=== PATIENT | female | born 1940 | race Caucasian/White ===

== ENCOUNTER 2017-02-03 05:56 | Day surgery (SDC) | payer OTHER, MEDICARE ==
[2017-01-05 10:00] VITALS: BMI 27.0
--- NOTE | 2017-01-05 10:41 | PAT Medication Instructions ---
Service Date Jan 05, 2017. Current Home Medication List Aspirin (Aspirin 81), 1 TAB PO QAM Atenolol (Atenolol), 50 MG PO QAM Cholecalciferol (Vitamin D), 1,000 INTER.UNIT PO QPM Diclofenac Sodium (Topical) (Voltaren 1% Top Gel), TOP QAM PRN for Pain Lactobacillus (Acidophilus), 1 TAB PO QAM Meloxicam (Mobic), 7.5 MG PO UD PRN for Pain Sodium Chloride Oph (Yvon 128 Oph), 1 DROP OPB BID Medication Instructions For Your Scheduled Surgery - Check with surgeon for instructions: Meloxicam (Mobic), 7.5 MG PO UD PRN for Pain Aspirin (Aspirin 81), 1 TAB PO QAM - Hold the following medications 24 hours prior to surgery: Diclofenac Sodium (Topical) (Voltaren 1% Top Gel), TOP QAM PRN for Pain - Hold the following medications the morning of surgery: Cholecalciferol (Vitamin D), 1,000 INTER.UNIT PO QPM Lactobacillus (Acidophilus), 1 TAB PO QAM - Take the following medications the morning of surgery with a sip of water: Sodium Chloride Oph (Yvon 128 Oph), 1 DROP OPB BID Atenolol (Atenolol), 50 MG PO QAM - Take the following medications as scheduled the night before surgery: Sodium Chloride Oph (Yvon 128 Oph), 1 DROP OPB BID If you have any questions please call us at [phone] or [phone] or [phone]
[2017-01-05 11:16] LABS: URINE APPEARANCE CLEAR (CLEAR); URINE BILIRUBIN NEG (NEG); URINE COLOR YELLOW; URINE NITRITE NEG (NEG); URINE PH 7.5 (4.5-7.5); URINE SPECIFIC GRAVITY 1.013 (1.000-1.030); UROBILINOGEN NEG (NEG)
[2017-01-05 11:17] LABS: MANUAL MICROSCOPIC REQUIRED? NO; REVIEW REQ? NO
[2017-01-05 11:26] LABS: PARTIAL THROMBOPLASTIN RATIO 1.1; PROTHROMBIN TIME (PATIENT) 10.6 SECONDS (9.0-12.0)
--- NOTE | 2017-01-05 11:38 | DIAGNOSTIC IMAGING REPORT ---
CHEST PREADMISSION(PA/LAT) CLINICAL HISTORY: Preoperative evaluation. COMPARISON STUDY: Chest radiograph April 15, 2015. FINDINGS: Numerous pulmonary nodules are unchanged and reflect calcified granulomas. No pneumothorax or pleural effusion is present. Borderline cardiomegaly is unchanged. Pulmonary vascularity is normal. The appearance the chest is unchanged. IMPRESSION: No acute cardiopulmonary findings. Electronically signed by: Maikel Goodman M.D. 01/05/2017 11:36 AM Dictated Date/Time: 01/05/2017 11:35 AM
[2017-01-05 11:56] LABS: BASO % 0.5 %; BASO ABS # 0.03 K/uL (0-0.2); COMPLETE YES; EOS % 2.1 %; HEMATOCRIT 44.7 % (37-47); IG% 0.2 %; LYMPH % 33.8 %; LYMPH ABS # 2.08 K/uL (1.2-3.4); MEAN CORPUSCULAR HEMOGLOBIN 33.8 pg (25-34); MEAN CORPUSCULAR HGB CONC 33.8 g/dl (32-36); MONO % 7.8 %; NEUT % 55.6 %; PLATELET COUNT 257 K/uL (130-400); RED BLOOD COUNT 4.47 M/uL (4.2-5.4); WHITE BLOOD COUNT 6.16 K/uL (4.8-10.8)
[2017-01-05 12:30] LABS: BUN/CREATININE RATIO 14.5 (10-20); CREATININE 0.96 mg/dl (0.60-1.20); POTASSIUM 4.4 mmol/L (3.5-5.1)
[~2017-02-03] VITALS: Ht 152.4 cm; Wt 62.7 kg
--- NOTE | 2017-02-03 01:36 | HISTORY & PHYSICAL EXAMINATION ---
DATE OF ADMISSION: 02/03/2017 SUBJECTIVE CHIEF COMPLAINT: Right foot pain. 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 She had a similar problem on the left foot which she had a fusion performed by Dr. Guevara in [place] approximately 12-13 years ago. More recently with this right foot, she had approximately 3+ years of pain and has had limited range of motion. She has been treated conservatively; however, she has failed all conservative management. She is now being set up for a hemiarthroplasty of the first MTP joint. PAST MEDICAL HISTORY: Hypertension, history of spine problems, acid reflux, history of breast cancer. SOCIAL HISTORY: The patient denies tobacco use. She has approximately 1 alcoholic drink per week. PAST SURGICAL HISTORY: Appendectomy, tonsillectomy, tubal ligation, mastectomy, left first MTP fusion, breast reconstruction and laminectomy. ALLERGIES: CODEINE CAUSES AN UPSET STOMACH. CURRENT MEDICATIONS: Atenolol, aspirin, acidophilus, and vitamin D. FAMILY HISTORY: Noncontributory. OBJECTIVE PHYSICAL EXAMINATION: GENERAL: The patient is alert and oriented x3. She is in no acute distress. She is a well-dressed, well-nourished 76-year-old female. Her affect is appropriate. CARDIOVASCULAR: Heart has a regular rhythm and rate without murmurs. LUNGS: Clear to auscultation bilateral. Dorsalis pedis, posterior tib pulse +2/4. Cap refill is less than 2 seconds. LYMPHATIC: No evidence of any swollen lymph nodes. MUSCULOSKELETAL: The patient has an antalgic gait favoring the right lower extremity. Upon inspection of the lower extremity, she has swelling of the first MTP joint. There appears to be bony exostosis dorsally. With palpation, she has tenderness of the 1st MTP joint. She has pain and crepitation elicited with passive range of motion of the right foot 1st MTP joint. She also has limited range of motion both with flexion and extension. SKIN: There are no scars, rashes or ulcers noted. NEUROLOGIC: Sensation is normal intact distally. X-RAY EXAMINATION: Multiple views of the right foot demonstrate severe osteoarthritic changes of the first MTP joint with subchondral sclerosis and spurring. ASSESSMENT AND DIAGNOSES: Right first metatarsophalangeal osteoarthritis. PLAN: Above assessment was discussed with the patient. At this time it was recommended the patient undergo a right first MTP Arthrosurface hemiarthroplasty. All potential risks, benefits, complications, alternatives and rehab have been discussed with the patient and at this time she wishes to proceed with the surgery as indicated. She will be scheduled for the surgery on 02/03/2017.
[~2017-02-03 05:56] MED LIST: ASPI-435 PO; CHOL100010 PO; DICL1GEL12 TOP; LACTTAB7 PO; MELO7.5T5 PO; SODI5OIN4 OPB; TNR50 PO
[2017-02-03] MEDS ORDERED: LACTATED RINGER'S 1000ML 1,000 ML IV SCH (06:00)
[2017-02-03] MEDS ORDERED: DEXAMETHASONE SOD INJ 4 MG/ML VIAL ONE ×2 (06:21→07:02)
[2017-02-03] MEDS ORDERED: BUPIVACAINE 0.25% 30 ML VIAL ONE (06:21)
[2017-02-03] MEDS ORDERED: EpINEphrine INJ 1MG/ML AMP 1 MG/ML AMP ONE (06:21)
[2017-02-03 06:29] VITALS: BP 145/86; PULSE 45; TEMP 36.4; O2SAT 98; Ht 152.4 cm; Wt 62.7 kg
[2017-02-03] MEDS ORDERED: BACITRACIN 50000 UNIT VIAL ONE (06:54)
[2017-02-03] MEDS ORDERED: ONDANSETRON INJ 2 MG/ML 2 ML VIAL ONE (07:02)
[2017-02-03] MEDS ORDERED: MIDAZOLAM HCL 1 MG/ML 2ML VIAL ONE (07:02)
[2017-02-03] MEDS ORDERED: LIDOCAINE HCL 2% 2 ML VIAL (20MG/ML) ONE (07:02)
[2017-02-03] MEDS ORDERED: FENTANYL CITRATE INJ 50 MCG/1 ML 2 ML VIAL ONE (07:02)
[2017-02-03] MEDS ORDERED: PROPOFOL IV EMULSION 10 MG/ML 20 ML VIAL IV ONE (07:02)
--- NOTE | 2017-02-03 07:47 | History & Physical Bridge Note ---
H&P Re-Evaluation Bridge Note: I have examined the patient, reviewed the History & Physical and in the interval since the performance of the History & Physical I have noted the following changes of clinical significance: No changes noted
[2017-02-03] MEDS ORDERED: EpHEDrine SULFATE INJ 50 MG/ML AMP IV PRN (08:15)
[2017-02-03] MEDS ORDERED: ATROPINE SULFATE 0.1 MG/ML 5ML SYR IV PRN (08:15)
[2017-02-03] MEDS ORDERED: FENTANYL CITRATE INJ 50 MCG/1 ML 2 ML VIAL IV PRN (08:15)
[2017-02-03] MEDS ORDERED: ONDANSETRON INJ 2 MG/ML 2 ML VIAL IV PRN (08:15)
[2017-02-03] MEDS ORDERED: CEFAZOLIN SOD 1 GM VIAL ONE (08:18)
--- NOTE | 2017-02-03 08:50 | [facility] Post Operative Brief Note ---
Immediate Operative Summary Operative Date Feb 03, 2017. Pre-Operative Diagnosis Right first metatarsophalangeal osteoarthritis, Hallux Rigidus Post-Operative Diagnosis Right first metatarsophalangeal osteoarthritis, Hallux Rigidus Procedure(s) Performed Right Great Toe Arthrosurface Hemiarthroplasty Surgeon Dr. Prieto Orthopedic Tech Surgeon(s) Yobani Buckley Pa-C Estimated Blood Loss 1 ML Findings See dict Specimens none per surgeon Drains None Anesthesia GLMA w/ popliteal block Complication(s) None Disposition Recovery Room / PACU
[2017-02-03] MEDS ORDERED: PROM25TA9 PO (08:56)
[2017-02-03] MEDS ORDERED: OXYC-57 PO (08:56)
--- NOTE | 2017-02-03 08:59 | Discharge Instructions ---
Discharge Instructions Date of Service Feb 03, 2017. Admission Reason for Admission: Right Great Toe Osteoarthritis Discharge Discharge Diagnosis / Problem: Right 1st MTP osteoarthritis Discharge Goals Goal(s): Decrease discomfort, Improve function Activity Recommendations Activity Limitations: per Instructions/Follow-up section Weightbearing Status: Right partial (Heel weightbearing only. If not tolerated , nonweightbearing) . Instructions / Follow-Up Instructions / Follow-Up ACTIVITY RECOMMENDATIONS: Limitations: Heel weight bearing only if able to tolerate. SPECIAL CARE INSTRUCTIONS: * If tolerated, you may do gentle passive motion with the great toe while keeping the dressing in place. * Some drainage onto the dressing is normal and is no cause for alarm. * Some swelling is natural especially after walking. * When resting, keep your foot elevated above the level of your heart. * Call [facility] if you notice: -Increased drainage -Fever over 101 degrees F -Severe constant pain BANDAGE: * Leave bandage/cast in place unless otherwise directed. * Keep bandage/cast dry at all times. PIN CARE: * Leave pins alone. * If pins come loose or fall out, notify physician. FOLLOW UP VISIT WITH DR. SANCHEZ If appointment is not already scheduled: Please call [facility] after you get home today to schedule a follow-up appointment for [address] Sanchez at . Current Hospital Diet Patient's current hospital diet: Discharge Diet Recommended Diet: Regular Diet Procedures Procedures Performed: Right Great Toe Arthrosurface Hemiarthroplasty Pending Studies Studies pending at discharge: no Medical Emergencies . Who to Call and When: Medical Emergencies: If at any time you feel your situation is an emergency, please call [phone] immediately. . Non-Emergent Contact Non-Emergency issues call your: Surgeon Call Non-Emergent contact if: temperature is above 101, your pain is not controlled, your pain is worsening . "Provider Documentation" section prepared by Yobani Buckley. . VTE Core Measure Inpt VTE Proph given/why not?: SCD's
[2017-02-03] MEDS ORDERED: OXYCODONE/ACETAMINOPHEN 5-325 TAB PO PRN (09:00)
--- NOTE | 2017-02-03 09:05 | DIAGNOSTIC IMAGING REPORT ---
R TOE(S) MIN 2 VIEWS CLINICAL HISTORY: RT GREAT TOE ARTHROPLASTY COMPARISON STUDY: None. FINDINGS: Total fluoroscopy time was 4 seconds. 2 fluoroscopic spot images of the forefoot. There is a first MTP joint arthroplasty. The hardware appears intact. No fracture or dislocation. IMPRESSION: Fluoroscopy provided for a first MTP joint arthroplasty Electronically signed by: Duy Ochoa M.D. 02/03/2017 9:04 AM Dictated Date/Time: 02/03/2017 9:03 AM
--- NOTE | 2017-02-03 09:22 | Anesthesiology Progress Note ---
Anesthesia Post Op Note Date & Time Feb 03, 2017 at 09:22 Vital Signs Pain Intensity: 0 Vital Signs Past 12 Hours Date Time Temp Pulse Resp B/P (MAP) Pulse Ox O2 Delivery O2 Flow Rate FiO2 02/03/17 09:15 55 16 105/73 99 Room Air 02/03/17 09:05 57 16 123/61 100 Oxymask 5 02/03/17 08:57 36.1 58 14 115/71 100 Oxymask 10 02/03/17 06:29 36.4 45 16 145/86 (105) 98 Room Air Notes Mental Status: alert / awake / arousable, participated in evaluation Pt Amnestic to Procedure: Yes Nausea / Vomiting: adequately controlled Pain: adequately controlled Airway Patency, RR, SpO2: stable & adequate BP & HR: stable & adequate Hydration State: stable & adequate Anesthetic Complications: no major complications apparent Block working well in pacu
--- NOTE | 2017-02-03 09:31 | DIAGNOSTIC IMAGING REPORT ---
RIGHT FOOT 3 VIEWS HISTORY: post op COMPARISON: None. FINDINGS: Right first MTP joint arthroplasty. The hardware appears intact. Overlying bandage obscures fine bony detail. No fracture or dislocation. Soft tissue gas at the first MTP joint is consistent with postoperative change. IMPRESSION: Status post right first MTP joint arthroplasty. Electronically signed by: uDy Ochoa M.D. 02/03/2017 9:30 AM Dictated Date/Time: 02/03/2017 9:29 AM
--- NOTE | 2017-02-03 09:31 | OPERATIVE REPORT ---
DATE OF OPERATION: 02/03/2017 PREOPERATIVE DIAGNOSES: 1. Right foot first metatarsophalangeal joint degenerative joint disease. 2. Hallux rigidus. POSTOPERATIVE DIAGNOSES: Same. PROCEDURE: Right first metatarsophalangeal joint arthroscopic hemiarthroplasty. SURGEON: Dr. Jewel Prieto. PLASTICS SCIENTIST: Yobani Buckley PA-C who was present for patient positioning, sterile prep and drape, management of retractors and instruments. He was present through the critical portions of the case including wound closure, application of sterile dressing and transport of the patient to recovery. ANESTHESIA: General LMA with popliteal block. SPECIMENS: None. DRAINS: None. COMPLICATIONS: None. BLOOD LOSS: 1 mL. PERTINENT HISTORY: This is a 76-year-old female with chronic progressive and ongoing right foot pain, deformity and loss of function and motion. She attempted and failed conservative management including shoewear modification, activity modification, physician directed home exercises, shoe inserts, ice, anti-inflammatories and injections. She had radiographs, which demonstrated right foot first metatarsophalangeal joint degenerative changes including sclerosis, marginal osteophytes, subchondral cysts and loss of the joint space. She was scheduled for surgery as indicated. All potential risks, benefits, complications, alternatives, rehab, potential for incomplete relief of symptoms, need for further surgery, DVT, PE, , persistent pain, swelling, scarring, weakness, neurovascular injury, wound complications, hardware failure, nonunion, and malunion were discussed with the patient. The patient decided to proceed with the procedure as indicated. DESCRIPTION OF PROCEDURE: After popliteal block was administered, the patient was taken to the operative suite, placed supine on the operating room table. After reviewing consent and identification of proper operative site, the patient was anesthetized, LMA was placed. Tourniquet was placed high on the right thigh over cast padding. Right lower extremity was then sterilely prepped and draped in the usual fashion, elevated and exsanguinated with an Esmarch bandage. Esmarch tourniquet was applied over sterile surgical towel at the level of the ankle. The pneumatic tourniquet was not used during the case. Next, a 15 blade scalpel was used to make an incision over the dorsal aspect of the first metatarsophalangeal joint. The incision was then deepened through the subcutaneous tissue. Meticulous hemostasis was achieved with electrocautery. Full thickness skin flaps were developed. The extensor hallucis longus was identified, freed, retracted, and protected laterally. Next, a Weitlaner retractor was placed in the incision and then the dorsal capsule and extensor brevis was then incised in line with skin incision, elevated both medially and laterally. Next, a hypertrophic synovium was encountered and this was resected with a rongeur. Next, the capsule was then retracted with a rongeur and a 15 blade scalpel was used to release the capsular attachments of the first metatarsophalangeal joint dorsally, medially and laterally. Next, a McGlamry elevator was placed into the joint between the first metatarsal and the sesamoids. This was then hyperplantarflexed to release soft tissue contracture. Next, the rongeur was used to resect marginal osteophytes at the proximal phalanx of the great toe. Next, the wound was copiously irrigated with sterile normal saline. This was then followed by use of a guide pin and under fluoroscopic assistance was placed essentially into the center-center position of the first metatarsal. Next, the initial reamer was passed over the guidepin and used to ream for the post. Next, the bone tap was then used to tap the first metatarsal followed by irrigation with copious amounts of sterile normal saline with bacitracin and then implantation of the threaded post. This was countersunk approximately 1 mm. Next, the Hunt taper alignment edgar was then placed into the threaded post followed by measurement of the first metatarsal head. Next, appropriate dorsal phalange reamer was then placed into the threaded posts and then used to ream the dorsal phalange of the first metatarsal. Next, this was irrigated with sterile normal saline. A trial was then placed gently into the Sylvester taper of the threaded post and then a sagittal saw was used to resect osteophytes circumferentially from around the trial within the first metatarsal head. Next, after excess bone was then excised wound was irrigated once again with sterile normal saline. This was then followed by impaction of the final implant into the threaded post and radiographs were obtained confirming position and alignment. Next, the wound was once again irrigated with sterile normal saline. The dorsal capsule was closed using 3-0 Vicryl suture then followed by closure of the dermis with buried interrupted 3-0 Vicryl x2 sutures and the skin was then closed using 4-0 nylon. Next, sterile compressive forefoot dressing was applied overwrapped with Coban. The tourniquet was released. The patient was awakened and taken to recovery in stable condition. I attest to the content of the Intraoperative Record and any orders documented therein. Any exceptions are noted below. JOSE ALBERTOD
[2017-02-03 09:40] VITALS: BP 134/77; PULSE 59; TEMP 36.4; O2SAT 100
[2017-02-03 10:10] VITALS: BP 140/71; PULSE 55; O2SAT 97
[2017-02-03 10:40] VITALS: BP 138/75; PULSE 58; TEMP 36.4; O2SAT 98
== END 2017-02-03 10:55 | disposition home or self-care (01) ==
LOC: C.ACU 05:56
PROVIDERS: ATTEND Orthopaedic Surgery Sports Medicine
DX: M19.071 Primary osteoarthritis, right ankle and foot (principal); M20.21 Hallux rigidus, right foot; I10 Essential (primary) hypertension; K21.9 Gastro-esophageal reflux disease without esophagitis; Z85.3 Personal history of malignant neoplasm of breast; Z90.89 Acquired absence of other organs; Z98.51 Tubal ligation status; Z90.10 Acquired absence of unspecified breast and nipple; Z79.82 Long term (current) use of aspirin; M19.90 Unspecified osteoarthritis, unspecified site

== ENCOUNTER → 2017-11-02 | Outpatient (CLI) | payer OTHER, MEDICARE ==
[~2017-11-02] MED LIST changes: -MELO7.5T5 PO
[2017-11-02 09:35] LABS: BASO % 0.4 %; BASO ABS # 0.02 K/uL (0-0.2); EOS % 3.1 %; EOS ABS # 0.17 K/uL (0-0.5); HEMATOCRIT 42.9 % (37-47); HEMOGLOBIN 14.5 g/dL (12.0-16.0); IG# 0.01 K/uL (0.00-0.02); LYMPH % 27.7 %; LYMPH ABS # 1.53 K/uL (1.2-3.4); MEAN CELL VOLUME 99.8 fL (80-100); MEAN CORPUSCULAR HEMOGLOBIN 33.7 pg (25-34); MEAN CORPUSCULAR HGB CONC 33.8 g/dl (32-36); MEAN PLATELET VOLUME 10.2 fL (7.4-10.4); MONO ABS # 0.44 K/uL (0.11-0.59); NEUT % 60.6 %; NEUT ABS # 3.36 K/uL (1.4-6.5); PLATELET COUNT 255 K/uL (130-400); RED CELL DISTRIBUTION WIDTH CV 13.6 % (11.5-14.5); RED CELL DISTRIBUTION WIDTH SD 49.6 fL (36.4-46.3); WHITE BLOOD COUNT 5.53 K/uL (4.8-10.8)
[2017-11-02 09:58] LABS: ALBUMIN 3.6 gm/dl (3.4-5.0); ALKALINE PHOSPHATASE 81 U/L (45-117); ALT/SGPT 24 U/L (12-78); AST/SGOT 20 U/L (15-37); BLOOD UREA NITROGEN 13 mg/dl (7-18); CALCIUM 9.1 mg/dl (8.5-10.1); CARBON DIOXIDE 29 mmol/L (21-32); CHOLESTEROL 187 mg/dl (0-200); GLUCOSE 91 mg/dl (70-99); LDL CHOLESTEROL CALCULATED 86 mg/dl; POTASSIUM 4.2 mmol/L (3.5-5.1); SODIUM 141 mmol/L (136-145); TOTAL PROTEIN 7.2 gm/dl (6.4-8.2)
== END | disposition home or self-care (01) ==
LOC: C.LAB 07:20
PROVIDERS: ATTEND Internal Medicine
DX: Z00.00 Encounter for general adult medical examination without abnormal findings (principal); I10 Essential (primary) hypertension; M85.80 Other specified disorders of bone density and structure, unspecified site; C50.919 Malignant neoplasm of unspecified site of unspecified female breast; K21.9 Gastro-esophageal reflux disease without esophagitis; E55.9 Vitamin D deficiency, unspecified

== ENCOUNTER 2019-10-28 06:26 | Inpatient (IN) ==
--- NOTE | 2019-10-23 10:11 | Anesthesiology Consultation ---
Date of Service October 23, 2019 Assessment & Plan (1) Encounter for pre-operative examination: Per nursing phone assessment on 10/20: Travel screen- Lives in [facility]. Picnic with in [facility] (uses PPE). No known COVID-19 positive contacts. No current COVID-19 related symptoms. Patient had preop protocol COVID-19 testing on 10/22 ([place]). Awaiting results. Chart Review Chart Review: Acceptable Risk for Surgery and Patient NOT seen in Pre Admission Testing History Surgery Operation Date: 10/28/19 08:30 Proposed Procedures p Laparoscopic-Assisted Colon Resection - Sushant Yun MD, FACS Height/Weight Height: 5 ft Weight: 60.328 kg Allergies Allergy/AdvReac Type Severity Reaction Status Date / Time ragweed pollen Allergy Unknown RUNNY Verified 10/21/19 07:38 NOSE, ITCHY EYES, SCRATCHY THROAT, RASH ON ARMS codeine AdvReac Mild NAUSEA Verified 10/21/19 07:38 Medications Home Medications Medication Instructions Recorded Confirmed Last Taken cholecalciferol (vitamin D3) 50 2,000 units PO HS tab 11/01/18 10/21/19 03/25/19 mcg (2,000 unit) tablet aspirin 81 mg PO QAM 03/26/19 10/21/19 03/25/19 atenolol 50 mg PO QAM 10/21/19 10/21/19 Unknown lactobacillus combination no.4 3,000 mmu cells PO QPM 10/21/19 10/21/19 Unknown [Probiotic] metronidazole [Flagyl] 500 mg PO UD 10/21/19 10/21/19 Unknown neomycin 500 mg PO UD 10/21/19 10/21/19 Unknown Past Medical History Medical History (Updated 10/23/19 @ 10:24 by Lilly Belle) Anxiety Arthritis Breast cancer 2014 - left mastectomy no chemo/radiation Central retinal vein occlusion 2012/no current issues Diverticulitis Gastroesophageal reflux disease Hypertension Insomnia Irritable bowel syndrome Migraine headache occasional Osteopenia Past Surgical History Surgical History (Updated 10/23/19 @ 10:07 by Lilly Belle) H/O colonoscopy (08/24/18) Dr. Cheung [facility] History of anesthesia reaction Nausea, urinary retention History of appendectomy (~1956) History of back surgery (~2017) lumbar laminectomy History of cataract surgery left and right History of dilatation and curettage History of foot surgery (~2017) right and left big toe joint History of oral surgery wisdom teeth History of tonsillectomy (~1972) History of total abdominal hysterectomy and bilateral salpingo-oophorectomy (~1993) Hx of breast surgery (~2013) left mastectomy PONV (postoperative nausea and vomiting) Social History Smoking Status: Never smoker Do You Dip or Chew Tobacco: No Hx Alcohol Use: Yes Alcohol type: wine alcohol intake frequency: holidays/special occasions only Hx Substance Use: No substance use type: does not use Testing Laboratory Results 10/23/19 SODIUM 137 POTASSIUM 4.2 CHLORIDE 105 CO2 27 BUN 16 CREATININE 1.08 GLUCOSE 96 WBC 8.34 H/H 14.6/43.6 PLT 305 Electrocardiogram Date: 10/23/19 SB at 57bpm. unconfirmed report* Chest X-Ray Date: 10/23/19 FINDINGS: Chronic granulomatous change considered unchanged. Diaphragms are smooth. Lungs are clear. Mild degenerative change thoracic spine. IMPRESSION: No acute process.
[~2019-10-28 06:26] MED LIST changes: -ASPI-435 PO; -CHOL100010 PO; -DICL1GEL12 TOP; -LACTTAB7 PO; +LR 15ML/HR IV SCH; -SODI5OIN4 OPB; -TNR50 PO; +cefOXitin 2,000 MG in DEXTROSE 5% 50 ML IV SCH
[2019-10-28] MEDS ORDERED: fentaNYL citrate 100 MCG/2 ML VIAL ONE ×2 (07:17→09:20)
[2019-10-28] MEDS ORDERED: GLYCOPYRROLATE 0.2 MG/ML VIAL ONE (07:17)
[2019-10-28] MEDS ORDERED: PROPOFOL IV EMULSION 10 MG/ML 20 ML VIAL IV ONE (07:17)
[2019-10-28] MEDS ORDERED: ONDANSETRON INJ 2 MG/ML 2 ML VIAL ONE (07:17)
[2019-10-28] MEDS ORDERED: LIDOCAINE HCL 2% 2 ML VIAL/AMP(20MG/ML) INFIL ONE (07:17)
[2019-10-28] MEDS ORDERED: DEXAMETHASONE SOD INJ 4 MG/ML VIAL ONE (07:17)
[2019-10-28] MEDS ORDERED: NEOSTIGMINE METHYLSULFATE 5 MG/5 ML SYR ONE (07:17)
[2019-10-28] MEDS ORDERED: MIDAZOLAM HCL 1 MG/ML 2ML VIAL ONE (07:17)
[2019-10-28] MEDS ORDERED: ROCURONIUM BROMIDE 10 MG/ML 5 ML VIAL IV ONE (07:17)
--- NOTE | 2019-10-28 07:34 | History & Physical Bridge Note ---
Date of Service October 28, 2019 History & Physical Bridge Note I have examined the patient, reviewed the History & Physical and in the interval since the performance of the History & Physical I have noted the following changes of clinical significance: no changes noted
[2019-10-28] MEDS ORDERED: BUPIVACAINE 0.5 % 5 MG/1 ML MPF 30ML VIAL ONE (07:54)
[2019-10-28] MEDS ORDERED: ePHEDrine sulfate 50 MG/ML AMP IV PRN (08:08)
[2019-10-28] MEDS ORDERED: ONDANSETRON INJ 2 MG/ML 2 ML VIAL IV PRN (08:08)
[2019-10-28] MEDS ORDERED: ATROPINE SULFATE 0.1 MG/ML 10ML SYR IV PRN (08:08)
[2019-10-28] MEDS ORDERED: fentaNYL citrate 100 MCG/2 ML VIAL IV PRN (08:08)
[2019-10-28] MEDS ORDERED: ACETAMINOPHEN 1000 MG/100 ML IV IV ONE (08:12)
[2019-10-28] MEDS ORDERED: ePHEDrine sulfate 50 MG/ML SYR ONE (08:48)
[2019-10-28] MEDS ORDERED: PHENYLEPHRINE 100MCG/ML 5ML SYR ONE (08:48)
[2019-10-28] MEDS ORDERED: HYDROmorphone INJ 2 MG/ML SYR/VIAL ONE (09:37)
[2019-10-28] MEDS ORDERED: CEFAZOLIN 250 MG/ML 1 GM VIAL ONE (10:24)
[2019-10-28] MEDS ORDERED: CEFAZOLIN 1000MG 1,000 MG/7.5 ML SYR IV STA (10:25)
[2019-10-28] MEDS ORDERED: ACETAMINOPHEN 1,000 MG/100 ML VIAL IV ONE (10:44)
--- NOTE | 2019-10-28 10:44 | Post Operative Brief Note ---
PG Immediate Post Op with CF Date of Surgery October 28, 2019 Pre & Post Diagnosis Operation Date: 10/28/19 08:30 Pre-Op Diagnosis: Diverticulitis Post-Op Diagnosis: Diverticulitis- acute/ chronic I identified the patient and participated in the time-out.: Yes Procedure Operation Date: 10/28/19 08:30 Actual Procedures p Laparoscopic-Assisted Sigmoid Colon Resection(Not Applicable) - Sushant Yun MD, FACS Surgeon Sushant Yun MD, FACS Lan Specialist Emmanuel Clayton Estimated Blood Loss 20 Findings Consistent with Post-Op Diagnosis Specimens Specimen Description: A.) sigmoid colon Drains Nghia-Hamilton Drain (15fr round) and Ruperto Drain
--- NOTE | 2019-10-28 11:33 | Anesthesiology Progress Note ---
Date of Service October 28, 2019 Anesthesia Post Procedure Vital Signs Vital Signs: Temp Pulse Pulse Resp BP Pulse Ox 10/28/19 11:25 39 L 12 155/74 H 100 10/28/19 11:15 41 L 13 149/71 H 100 10/28/19 11:05 43 L 12 128/91 100 10/28/19 10:59 97.2 F L 43 L 12 145/89 H 100 10/28/19 06:56 98.2 F 66 20 137/90 98 Pain Intensity Abdomen: Pain Intensity: 2 Transfer of Care Handoff Completed per policy Notes Mental Status: alert / awake / arousable and participated in evaluation Patient Amnestic to Procedure: Yes Nausea / Vomiting: adequately controlled Pain: adequately controlled Airway Patency, RR, SpO2: stable & adequate BP & HR: stable & adequate Hydration State: stable & adequate Anesthetic Complications: no major complications apparent and Pt Satisfied with anesthetic care
[2019-10-28] MEDS ORDERED: PROMETHAZINE HCL 12.5 MG in SODIUM CHLORIDE 0.9% 50 ML IV PRN (12:11)
[2019-10-28] MEDS ORDERED: PROMETHAZINE HCL 6.25 MG in SODIUM CHLORIDE 0.9% 50 ML IV PRN (12:11)
[2019-10-28] MEDS: D5NSS + 20MEQ KCL 20 MEQ/1,000 ML BAG IV SCH (12:39)
--- NOTE | 2019-10-28 12:39 | Hospitalist Consultation ---
Date of Consultation October 28, 2019 Assessment & Plan (1) Diverticulitis: s/p colon resection on 10/[address] Yun Pre-op Hb 14.6 diet and DVT proph as per surgery Cefoxitin 1000mg Q6hrs as per Dr. Yun (2) Hypertension: continue home meds (3) Gastroesophageal reflux disease: continue home meds (4) Breast cancer: s/p L sided mastectomy with reconstruction in 2013 No current tx (5) Central retinal vein occlusion: Aspirin 81mg On hold given neil-op status Would resume as soon as surgery feels this is safe Heparin Q12 hrs as per surgery (6) DVT prophylaxis: As per surgery, Heparin for DVT proph History of Present Illness Attending Physician: Sushant Yun MD, [facility] History of Present Illness 79 y/o F who was admitted on 10/27 s/p colon resection with Dr. Yun. This was done due to recurrent diverticulitis. Pt is doing well post-op. She states that she was very nauseated prior to the OR which she attributed to her "colon clean out" prep. She states that this is now resolved. She has not had any PO. Pt denies fever, SOB, chest pain, abd pain, v/c/d, LE swelling or pain. Allergies Allergy/AdvReac Type Severity Reaction Status Date / Time ragweed pollen Allergy Unknown RUNNY Verified 10/28/19 06:50 NOSE, ITCHY EYES, SCRATCHY THROAT, RASH ON ARMS codeine AdvReac Mild NAUSEA Verified 10/28/19 06:50 Home Medications Home Medications Medication Instructions Recorded Confirmed Type cholecalciferol (vitamin D3) 50 2,000 units PO HS tab 11/01/18 10/28/19 History mcg (2,000 unit) tablet aspirin 81 mg PO QAM 03/26/19 10/28/19 History atenolol 50 mg PO QAM 10/21/19 10/28/19 History lactobacillus combination no.4 3,000 mmu cells PO QPM 10/21/19 10/28/19 History [Probiotic] metronidazole [Flagyl] 500 mg PO UD 10/21/19 10/28/19 History neomycin 500 mg PO UD 10/21/19 10/28/19 History Patient History Medical History Anxiety Arthritis Breast cancer 2014 - left mastectomy no chemo/radiation Central retinal vein occlusion 2012/no current issues Diverticulitis Gastroesophageal reflux disease Hypertension Insomnia Irritable bowel syndrome Migraine headache occasional Osteopenia Surgical History H/O colonoscopy (08/24/18) Dr. Cheung [facility] History of anesthesia reaction Nausea, urinary retention History of appendectomy (~1955) History of back surgery (~2016) lumbar laminectomy History of cataract surgery left and right History of dilatation and curettage History of foot surgery (~2017) right and left big toe joint History of oral surgery wisdom teeth History of tonsillectomy (~1972) History of total abdominal hysterectomy and bilateral salpingo-oophorectomy (~1993) Hx of breast surgery (~2013) left mastectomy PONV (postoperative nausea and vomiting) Family History Unknown Stroke syndrome Hypertension Father Ulcerative colitis Hypertension Mother Emphysema of lung Stroke syndrome Hypertension Pneumonia Depression Breast cancer Glaucoma Social History Preferred Language: Maltese Communication Ability: Effective Children'S Ministry Director Required: No Beliefs That Will Affect Care: None marital status: Current Living Situation: Spouse current occupational status: retired current occupation: Housewife Other Information That Helps Us Care for You: No Feels Safe at Home: Yes Safety Concerns: Feels Safe At This Time Smoking Status: Never smoker Do You Dip or Chew Tobacco: No ; Second Hand Exposure: Yes (child) ; Tobacco Cessation Education Requested by Patient: No Hx Alcohol Use: Yes Alcohol type: wine Alcohol Intake Frequency Comment: socailly Hx Substance Use: No Physical Activity Frequency: 3-4 Times per Week Review of Systems Review of Systems: Pertinent positives and negatives reviewed in HPI--all others negative Physical Exam Constitutional: WD/WN, vitals as above Eyes: normal visual alvarez by confrontation and + anicteric sclerae Neck: normal visual inspection and trachea midline Respiratory: normal respiratory effort, lungs clear to auscultation Cardiovascular: Rate/Rhythm: regular rate and regular rhythm Gastrointestinal (Abdomen): Inspection/Auscultation: abdomen not distended Percussion/Palpation: abdomen soft; abdomen nontender (to very light palpation) Musculoskeletal: Head/Neck/Chest: normocephalic and head atraumatic negative for edema, peripheral pulses intact Skin: no rashes, warm and dry Neurologic: awake; not confused Speech / Cognition: normal speech Psychiatric: A+Ox3, euthymic affect Results & Data Results & Data ([facility]) Vital Signs (Past 12 Hours) Vital Signs Temp Pulse Pulse Resp BP Pulse Ox 10/28/19 11:45 36.7 C 40 L 12 160/74 H 100 10/28/19 11:35 40 L 12 160/74 H 100 10/28/19 11:25 39 L 12 155/74 H 100 10/28/19 11:15 41 L 13 149/71 H 100 10/28/19 11:05 43 L 12 128/91 100 10/28/19 10:59 36.2 C L 43 L 12 145/89 H 10/28/19 06:56 36.8 C 66 20 137/90 98 PG Care Time/CCT Total # of Minutes Spent Total Time Spent with Patient: Total time spent is greater than 50% in coordination of care (as documented) at patient's floor/unit and/or counseling patient: Coding Level of Care Code 65578 Inpt Consult Level 4 Diagnoses Diverticulitis K57.92 Hypertension I10 Gastroesophageal reflux disease K21.9 Breast cancer C50.919 Central retinal vein occlusion H34.8192 DVT prophylaxis Z29.9
--- NOTE | 2019-10-28 13:38 | Operative Report (OR) ---
DATE OF OPERATION: 10/28/2019 NAME OF OPERATION: Laparoscopic-assisted sigmoid resection. PREOPERATIVE DIAGNOSES: Acute diverticulitis and chronic diverticulitis. POSTOPERATIVE DIAGNOSES: Acute diverticulitis and chronic diverticulitis. STAFF SURGEON: Sushant Yun MD. ENAMEL FINISHER: Shivam Clayton PA-C. ANESTHESIA: General. DESCRIPTION OF PROCEDURE: The patient was brought in the operating room and placed on the operating table in the lithotomy position. Her abdomen and perineum were prepped and draped in usual fashion. My assistant men's lacrosse coach helped with prepping, draping, laparoscopy, sigmoid resection and closure of the wound. Initially, incision was made in the lower midline below the umbilicus, carrying dissection down to the fascia, entering the abdominal cavity under visualization, placing a balloon cannula. Pneumoperitoneum was produced. Three 5 mm ports were placed in left lower quadrant, right lower quadrant and right upper quadrant. The sigmoid was observed. There was severe inflammation and adhesion to the lateral sidewall. Dissection was carried along the more proximal left colon, bringing the colon from lateral to medial along the colic gutter, being sure to identify the spleen, dissecting the colon away from the spleen. When I felt there was adequate mobility, we then removed all the ports, extended the midline incision down to the pubis, entering the abdominal cavity. The patient had very severe acute and chronic sigmoid diverticulitis with severe adhesion to the lateral wall of the abdomen. We did transect the proximal sigmoid using the MICHEAL stapler and then, with some difficulty, dissected the colon away from the lateral wall and then transected the rectosigmoid using the MICHEAL stapler. At this point, we had adequate length to perform an end-to-end anastomosis. The descending colon was anastomosed to the rectum in an end-to-end fashion using a handsewn 2-layer anastomosis with 2-0 chromic for the mucosal layer and 3-0 silk for the seromuscular layer. The abdomen was irrigated with antibiotic solution. A 15 round Nghia-Hamilton drain was placed into the pelvis, secured to the skin using a 3-0 nylon suture, this was through one of the 5 mm port sites. The other port sites were closed using subcuticular 4-0 Monocryl. The fascia was reapproximated using #1 PDS. Quarter inch Ruperto drain was placed in the subcutaneous space, secured to the skin using 4-0 nylon suture. Skin was reapproximated using abi. The patient was transferred to recovery room in stable condition. The Beck catheter was left in place. I attest to the content of the Intraoperative Record and any orders documented therein. Any exception s are noted below.
[2019-10-28] MEDS: HYDROmorphone INJ 0.5 MG/0.5 ML SYR IV PRN ×2 (14:10→22:00)
[2019-10-29] MEDS: D5NSS + 20MEQ KCL 20 MEQ/1,000 ML BAG IV SCH ×3 (00:54→13:49)
[2019-10-29] MEDS ORDERED: KETOROLAC TROMETHAMINE 15 MG/ML VIAL IV PRN (05:53)
[2019-10-29 06:01] LABS: Basophils # (auto) 0.01 K/uL (0-0.2); Basophils % (auto) 0.1 %; Eosinophils # (auto) 0.04 K/uL (0-0.5); Eosinophils % (auto) 0.4 %; Hematocrit (blood only) 39.5 % (37-47); Hemoglobin 13.4 g/dL (12.0-16.0); Immature Granulocytes # (auto) 0.02 K/uL (0.00-0.02); Immature Granulocytes % (auto) 0.2 %; Lymphocytes # (auto) 1.75 K/uL (1.2-3.4); Lymphocytes % (auto) 15.6 %; Mean Corpuscular Hemoglobin 33.4 pg (25-34); Mean Corpuscular Hgb Conc 33.9 g/dL (32-36); Mean Corpuscular Volume 98.5 fL (80-100); Mean Platelet Volume 9.8 fL (7.4-10.4); Monocytes # (auto) 1.07 K/uL (0.11-0.59); Monocytes % (auto) 9.5 %; Neutrophils # (auto) 8.35 K/uL (1.4-6.5); Neutrophils % (auto) 74.2 %; Platelet Count 240 K/uL (130-400); RDW Coefficient of Variation 13.4 % (11.5-14.5); RDW Standard Deviation 48.3 fL (36.4-46.3); Red Blood Count 4.01 M/uL (4.2-5.4); White Blood Count 11.24 K/uL (4.8-10.8)
--- NOTE | 2019-10-29 06:14 | Surgery Progress Note ---
Date of Service October 29, 2019 Assessment & Plan (1) H/O colectomy: afeb, vss min pain- IV dilaudid drain- serosang good uo- leave elaine for now ice only, ambulate ck labs Results & Data Vital Signs (Past 12 Hours) Vital Signs Temp Pulse Resp BP Pulse Ox 10/28/19 19:34 36.4 C L 60 17 124/75 96 PG Care Time/CCT Total # of Minutes Spent Total Time Spent with Patient: Total time spent is greater than 50% in coordination of care (as documented) at patient's floor/unit and/or counseling patient: Coding Level of Care Code None Diagnoses H/O colectomy Z90.49
[2019-10-29 06:40] LABS: Albumin Level 2.6 gm/dl (3.4-5.0); BUN Creatinine Ratio 5.6 (10-20); Calcium 8.6 mg/dl (8.5-10.1); Est GFR (Non-African American) 57.8; Magnesium 1.8 mg/dl (1.8-2.4); Potassium 4.2 mmol/L (3.5-5.1)
[2019-10-29 06:43] LABS: Albumin Globulin Ratio 0.8 (0.9-2); Bilirubin,Total 0.5 mg/dl (0.2-1); Globulin 3.2 gm/dl (2.5-4.0); Phosphorus 2.1 mg/dl (2.5-4.9); Total Protein 5.8 gm/dl (6.4-8.2)
[2019-10-29] MEDS: HYDROmorphone INJ 0.5 MG/0.5 ML SYR IV PRN (07:32)
[2019-10-29] MEDS: HEPARIN SOD 5,000 UNIT/0.5 ML VIAL SQ SCH ×2 (07:49→20:34)
[2019-10-29] MEDS: ATENOLOL 50 MG TABLET PO SCH (07:49)
[2019-10-29] MEDS ORDERED: SODIUM PHOSPHATE 15 MMOL in SODIUM CHLORIDE 0.9% 250 ML IV ONE (13:15)
--- NOTE | 2019-10-29 14:36 | Hospitalist Progress Note ---
Date of Service October 29, 2019 Assessment & Plan (1) Diverticulitis: s/p sigmoid colon resection on 10/[address] Yun Pre-op Hb 14.6 and slight drop today 13.4 -Continue ice chips only awaiting bowel function return AUGUSTO drain in place Beck catheter in place -Continue IV fluids -Continue cefoxitin 1000mg Q6hrs as per Dr. Yun -Continue pain control as needed with IV Toradol, IV Dilaudid Phenergan as needed for nausea (2) Hypertension: Blood pressure fairly well controlled -Continue home atenolol (3) Gastroesophageal reflux disease: Not on medication Follow (4) Breast cancer: s/p L sided mastectomy with reconstruction in 2013 No current tx (5) Central retinal vein occlusion: Aspirin 81mg from home is on hold Would resume as soon as surgery feels this is safe (6) DVT prophylaxis: As per surgery, Heparin for DVT proph, SCDs Disposition-continued stay Admission and Anticipated Discharge Date Admission Date: October 28, 2019 Subjective Patient feeling well, having some abdominal pain at the site of the incision left lower quadrant. No nausea or vomiting. No of passing of flatus yet. She is having ice chips only. Denies chest pains or shortness of breath. Otherwise feeling well. Review of Systems Review of Systems: All systems reviewed & are unremarkable except as noted in HPI & below Physical Exam Constitutional: WD/WN, vitals as above Eyes: + anicteric sclerae Neck: trachea midline, no thyromegaly Respiratory: normal respiratory effort, lungs clear to auscultation Cardiovascular: RRR, no murmur, no edema Gastrointestinal (Abdomen): Inspection/Auscultation: + hypoactive bowel sounds (Did hear 1 loud bowel sound but otherwise hypoactive); + abdomen abnormal to inspection (Dressing over the midline is clean dry and intact except for scant dried blood at the inferior margin, several laparoscopic incisions visible with Dermabond) Percussion/Palpation: + abdomen tender (Minimal over incision site without guarding or rebound tenderness) and abdomen soft Musculoskeletal: Extremities: extremities normal to inspection; no cyanosis and no clubbing Skin: no rashes, warm and dry Neurologic: moves all extremities and awake; no focal motor deficits Psychiatric: A+Ox3, euthymic affect Genitourinary: Beck catheter in place draining clear yellow urine Lymphatic: no lymphedema Results & Data Results & Data ([facility]) Vital Signs (Past 12 Hours) Vital Signs Temp Pulse Resp BP Pulse Ox 10/29/19 07:29 37.1 C 60 18 149/65 H 97 Laboratory Results 10/29/19 10/29/19 Range/Units 05:42 05:42 WBC 11.24 H (4.8-10.8) K/uL RBC 4.01 L (4.2-5.4) M/uL Hgb 13.4 (12.0-16.0) g/dL Hct 39.5 (37-47) % MCV 98.5 (80-100) fL MCH 33.4 (25-34) pg MCHC 33.9 (32-36) g/dL RDW Std Deviation 48.3 H (36.4-46.3) fL RDW Coeff of Abbie 13.4 (11.5-14.5) % Plt Count 240 (130-400) K/uL MPV 9.8 (7.4-10.4) fL Immature Gran % (Auto) 0.2 % Neut % (Auto) 74.2 % Lymph % (Auto) 15.6 % [place] % (Auto) 9.5 % Eos % (Auto) 0.4 % Baso % (Auto) 0.1 % Neut # (Auto) 8.35 H (1.4-6.5) K/uL Lymph # (Auto) 1.75 (1.2-3.4) K/uL [place] # (Auto) 1.07 H (0.11-0.59) K/uL Eos # (Auto) 0.04 (0-0.5) K/uL Baso # (Auto) 0.01 (0-0.2) K/uL Immature Gran # (Auto) 0.02 (0.00-0.02) K/uL Sodium 141 (136-145) mmol/L Potassium 4.2 (3.5-5.1) mmol/L Chloride 111 H (98-107) mmol/L Carbon Dioxide 26 (21-32) mmol/L Anion Gap 5.0 (3-11) BUN 5 L (7-18) mg/dl Creatinine 0.95 (0.6-1.2) mg/dl Est Cr Clr Drug Dosing 40.0 ml/min Est GFR ( Amer) 67.0 Est GFR (Non-Af Amer) 57.8 BUN/Creatinine Ratio 5.6 L (10-20) Glucose 95 (70-99) mg/dl Calcium 8.6 (8.5-10.1) mg/dl Phosphorus 2.1 L (2.5-4.9) mg/dl Magnesium 1.8 (1.8-2.4) mg/dl Total Bilirubin 0.5 (0.2-1) mg/dl AST 16 (15-37) U/L ALT 18 (12-78) U/L Alkaline Phosphatase 72 (45-117) U/L Total Protein 5.8 L (6.4-8.2) gm/dl Albumin 2.6 L (3.4-5.0) gm/dl Globulin 3.2 (2.5-4.0) gm/dl Albumin/Globulin Ratio 0.8 L (0.9-2) PG Care Time/CCT Total # of Minutes Spent Total Time Spent with Patient: Total time spent is greater than 50% in coordination of care (as documented) at patient's floor/unit and/or counseling patient: Coding Level of Care Code 48555 Subseq Hosp Care Lvl 2 Diagnoses Diverticulitis K57.92 Hypertension I10 Gastroesophageal reflux disease K21.9 Breast cancer C50.919 Central retinal vein occlusion H34.8192 DVT prophylaxis Z29.9
[2019-10-29] MEDS: HYDROmorphone INJ 1 MG/ML SYRINGE IV PRN ×2 (20:36→20:49)
[2019-10-30] MEDS: D5NSS + 20MEQ KCL 20 MEQ/1,000 ML BAG IV SCH ×2 (00:10→09:53)
[2019-10-30] MEDS: HYDROmorphone INJ 0.5 MG/0.5 ML SYR IV PRN (05:54)
[2019-10-30 06:09] LABS: Albumin Level 2.4 gm/dl (3.4-5.0); BUN Creatinine Ratio 6.5 (10-20); Calcium 8.1 mg/dl (8.5-10.1); Creatinine Clr Calc Pharmacy 40.5 ml/min; Est GFR (African American) 67.8; Est GFR (Non-African American) 58.5; Magnesium 1.8 mg/dl (1.8-2.4); Potassium 4.2 mmol/L (3.5-5.1)
[2019-10-30 06:12] LABS: Albumin Globulin Ratio 0.8 (0.9-2); Bilirubin,Total 0.3 mg/dl (0.2-1); Globulin 3.2 gm/dl (2.5-4.0); Total Protein 5.6 gm/dl (6.4-8.2)
--- NOTE | 2019-10-30 06:54 | Surgery Progress Note ---
Date of Service October 30, 2019 Assessment & Plan (1) H/O colectomy: afeb, vss aurelio watson, some bs d/c elaine sips later today cont atbx for now Results & Data Vital Signs (Past 12 Hours) Vital Signs Temp Pulse Resp BP Pulse Ox 10/29/19 23:04 36.8 C 51 L 16 119/65 95 PG Care Time/CCT Total # of Minutes Spent Total Time Spent with Patient: Total time spent is greater than 50% in coordination of care (as documented) at patient's floor/unit and/or counseling patient: Coding Level of Care Code None Diagnoses H/O colectomy Z90.49
[2019-10-30] MEDS: ATENOLOL 50 MG TABLET PO SCH (08:47)
[2019-10-30] MEDS: HEPARIN SOD 5,000 UNIT/0.5 ML VIAL SQ SCH ×2 (08:47→22:09)
[2019-10-30] MEDS: HYDROmorphone INJ 1 MG/ML SYRINGE IV PRN ×2 (12:36→22:07)
[2019-10-30] MEDS ORDERED: SODIUM PHOSPHATE 15 MMOL in SODIUM CHLORIDE 0.9% 250 ML IV ONE (13:30)
--- NOTE | 2019-10-30 17:09 | Hospitalist Progress Note ---
Date of Service October 30, 2019 Assessment & Plan (1) Diverticulitis: s/p sigmoid colon resection on 10/[address] Yun Pre-op Hb 14.6 and slight drop on POD#1 to 13.4 Passing small amount of flatus -Continue ice chips only awaiting bowel function return, adv diet as tolerated AUGUSTO drain in place, leaking around a bit Beck catheter removed and voiding -Continue IV fluids -Continue cefoxitin 1000mg Q6hrs as per Dr. Yun -Continue pain control as needed with IV Toradol, IV Dilaudid Phenergan as needed for nausea (2) Hypertension: Blood pressure fairly well controlled -Continue home atenolol (3) Gastroesophageal reflux disease: Not on medication Follow (4) Breast cancer: s/p L sided mastectomy with reconstruction in 2013 No current tx (5) Central retinal vein occlusion: Aspirin 81mg from home is on hold Would resume as soon as surgery feels this is safe (6) DVT prophylaxis: As per surgery, Heparin for DVT proph, SCDs Disposition-continued stay Hospitalist service will follow along Admission and Anticipated Discharge Date Admission Date: October 28, 2019 Subjective Pt feeling better today. Passed a small amount of flatus but no BM. No N/V. Is conrad ice chips. Denies CP or SOB. Has been OOB and ambulating Review of Systems Review of Systems: All systems reviewed & are unremarkable except as noted in HPI & below Physical Exam Constitutional: WD/WN, vitals as above Eyes: + anicteric sclerae Neck: trachea midline, no thyromegaly Respiratory: normal respiratory effort, lungs clear to auscultation Cardiovascular: RRR, no murmur, no edema Gastrointestinal (Abdomen): Inspection/Auscultation: normal bowel sounds; + abdomen abnormal to inspection (Dressing over the midline is clean dry and intact except for scant dried blood at the inferior margin, several laparoscopic incisions visible with Dermabond) Percussion/Palpation: + abdomen tender (Minimal over incision site without guarding or rebound tenderness) and abdomen soft AUGUSTO drain in place draining serosang fluid Musculoskeletal: Extremities: extremities normal to inspection; no cyanosis and no clubbing Skin: no rashes, warm and dry Neurologic: moves all extremities and awake; no focal motor deficits Psychiatric: A+Ox3, euthymic affect Lymphatic: no lymphedema Results & Data Results & Data ([facility]) Vital Signs (Past 12 Hours) Vital Signs Temp Pulse Resp BP Pulse Ox 10/30/19 14:49 36.4 C L 81 18 138/83 96 10/30/19 07:02 36.4 C L 55 L 16 128/79 95 Laboratory Results 10/30/19 Range/Units 05:14 Sodium 144 (136-145) mmol/L Potassium 4.2 (3.5-5.1) mmol/L Chloride 114 H (98-107) mmol/L Carbon Dioxide 27 (21-32) mmol/L Anion Gap 3.0 (3-11) BUN 6 L (7-18) mg/dl Creatinine 0.94 (0.6-1.2) mg/dl Est Cr Clr Drug Dosing 40.5 ml/min Est GFR ( Amer) 67.8 Est GFR (Non-Af Amer) 58.5 BUN/Creatinine Ratio 6.5 L (10-20) Glucose 100 H (70-99) mg/dl Calcium 8.1 L (8.5-10.1) mg/dl Phosphorus 2.0 L (2.5-4.9) mg/dl Magnesium 1.8 (1.8-2.4) mg/dl Total Bilirubin 0.3 (0.2-1) mg/dl AST 20 (15-37) U/L ALT 17 (12-78) U/L Alkaline Phosphatase 68 (45-117) U/L Total Protein 5.6 L (6.4-8.2) gm/dl Albumin 2.4 L (3.4-5.0) gm/dl Globulin 3.2 (2.5-4.0) gm/dl Albumin/Globulin Ratio 0.8 L (0.9-2) PG Care Time/CCT Total # of Minutes Spent Total Time Spent with Patient: Total time spent is greater than 50% in coordination of care (as documented) at patient's floor/unit and/or counseling patient: Coding Level of Care Code 39405 Subseq Hosp Care Lvl 1 Diagnoses Diverticulitis K57.92 Hypertension I10 Gastroesophageal reflux disease K21.9 Breast cancer C50.919 Central retinal vein occlusion H34.8192 DVT prophylaxis Z29.9
[2019-10-31] MEDS: D5NSS + 20MEQ KCL 20 MEQ/1,000 ML BAG IV SCH ×2 (02:01→18:37)
--- NOTE | 2019-10-31 06:13 | Surgery Progress Note ---
Date of Service October 31, 2019 Assessment & Plan (1) H/O colectomy: afeb, vss min pain drainage - serous around AUGUSTO- will d/c drain mild distention may have Tea- hold on tray of clear liquids for now likely mild ileus Results & Data Vital Signs (Past 12 Hours) Vital Signs Temp Pulse Resp BP Pulse Ox 10/30/19 23:53 36.8 C 57 L 16 153/83 H 93 10/30/19 20:15 159/90 H 10/30/19 19:01 36.9 C 60 17 170/89 H 96 PG Care Time/CCT Total # of Minutes Spent Total Time Spent with Patient: Total time spent is greater than 50% in coordination of care (as documented) at patient's floor/unit and/or counseling patient: Coding Level of Care Code None Diagnoses H/O colectomy Z90.49
[2019-10-31 06:58] LABS: Basophils # (auto) 0.01 K/uL (0-0.2); Basophils % (auto) 0.1 %; Eosinophils # (auto) 0.06 K/uL (0-0.5); Eosinophils % (auto) 0.6 %; Hematocrit (blood only) 43.9 % (37-47); Immature Granulocytes # (auto) 0.02 K/uL (0.00-0.02); Immature Granulocytes % (auto) 0.2 %; Lymphocytes # (auto) 1.38 K/uL (1.2-3.4); Lymphocytes % (auto) 14.2 %; Mean Corpuscular Hemoglobin 33.7 pg (25-34); Mean Corpuscular Hgb Conc 34.2 g/dL (32-36); Mean Corpuscular Volume 98.7 fL (80-100); Mean Platelet Volume 10.1 fL (7.4-10.4); Monocytes # (auto) 0.74 K/uL (0.11-0.59); Monocytes % (auto) 7.6 %; Neutrophils # (auto) 7.51 K/uL (1.4-6.5); Neutrophils % (auto) 77.3 %; Platelet Count 255 K/uL (130-400); RDW Coefficient of Variation 13.4 % (11.5-14.5); RDW Standard Deviation 48.4 fL (36.4-46.3); Red Blood Count 4.45 M/uL (4.2-5.4); White Blood Count 9.72 K/uL (4.8-10.8)
[2019-10-31 07:25] LABS: BUN Creatinine Ratio 4.6 (10-20); Calcium 8.7 mg/dl (8.5-10.1); Creatinine Clr Calc Pharmacy 42.7 ml/min; Est GFR (African American) 72.5; Est GFR (Non-African American) 62.5; Magnesium 1.8 mg/dl (1.8-2.4); Phosphorus 2.4 mg/dl (2.5-4.9); Potassium 4.1 mmol/L (3.5-5.1)
[2019-10-31] MEDS: HEPARIN SOD 5,000 UNIT/0.5 ML VIAL SQ SCH ×2 (09:12→20:20)
[2019-10-31] MEDS: ATENOLOL 50 MG TABLET PO SCH (09:13)
--- NOTE | 2019-10-31 14:05 | Hospitalist Progress Note ---
Date of Service October 31, 2019 Assessment & Plan (1) Diverticulitis: s/p sigmoid colon resection on 10/[address] Yun Pre-op Hb 14.6 and slight drop on POD#1 to 13.4, no wup to 15 Passing small amount of flatus, but not much, hypoactive bowel sounds, mild ileus as per SUrgery -Continue ice chips and now tea today as per Surgery -awaiting bowel function return, adv diet as tolerated AUGUSTO drain removed as was leaking Beck catheter removed and voiding -Continue IV fluids but decrease to 70mL/hr as getting a little edematous in hands -Continue cefoxitin 1000mg Q6hrs as per Dr. Yun -Continue pain control as needed with IV Toradol, IV Dilaudid Phenergan as needed for nausea -encouraged continued ambulation (2) Hypertension: Blood pressure fairly well controlled -Continue home atenolol (3) Gastroesophageal reflux disease: Not on medication Follow (4) Breast cancer: s/p L sided mastectomy with reconstruction in 2013 No current tx (5) Central retinal vein occlusion: Aspirin 81mg from home is on hold Would resume as soon as surgery feels this is safe (6) DVT prophylaxis: As per surgery, Heparin for DVT proph, SCDs Disposition-continued stay Hospitalist service will follow along Admission and Anticipated Discharge Date Admission Date: October 28, 2019 Subjective Passing some small amounts of flatus, but no BM yet. No N/V, denies CP/SOB. Is frustrated with awaiting bowel function return. Tamra ice chips nad tea Review of Systems Review of Systems: All systems reviewed & are unremarkable except as noted in HPI & below Physical Exam Constitutional: WD/WN, vitals as above Eyes: + anicteric sclerae Neck: trachea midline, no thyromegaly Respiratory: normal respiratory effort, lungs clear to auscultation Cardiovascular: RRR, no murmur, no edema Gastrointestinal (Abdomen): Inspection/Auscultation: + hypoactive bowel sounds; + abdomen abnormal to inspection (Dressing over the midline is clean dry and intact except for scant dried blood at the inferior margin, several laparoscopic incisions visible with Dermabond) Percussion/Palpation: + abdomen tender (Minimal over incision site without guarding or rebound tenderness) and abdomen soft Musculoskeletal: Extremities: extremities normal to inspection; no cyanosis and no clubbing Skin: no rashes, warm and dry Neurologic: moves all extremities and awake; no focal motor deficits Psychiatric: A+Ox3, euthymic affect Lymphatic: no lymphedema Results & Data Results & Data ([facility]) Vital Signs (Past 12 Hours) Vital Signs Temp Pulse Resp BP Pulse Ox 10/31/19 07:05 36.9 C 61 16 149/93 H 95 Laboratory Results 10/31/19 10/31/19 Range/Units 06:26 06:26 WBC 9.72 (4.8-10.8) K/uL RBC 4.45 (4.2-5.4) M/uL Hgb 15.0 (12.0-16.0) g/dL Hct 43.9 (37-47) % MCV 98.7 (80-100) fL MCH 33.7 (25-34) pg MCHC 34.2 (32-36) g/dL RDW Std Deviation 48.4 H (36.4-46.3) fL RDW Coeff of Babie 13.4 (11.5-14.5) % Plt Count 255 (130-400) K/uL MPV 10.1 (7.4-10.4) fL Immature Gran % (Auto) 0.2 % Neut % (Auto) 77.3 % Lymph % (Auto) 14.2 % [place] % (Auto) 7.6 % Eos % (Auto) 0.6 % Baso % (Auto) 0.1 % Neut # (Auto) 7.51 H (1.4-6.5) K/uL Lymph # (Auto) 1.38 (1.2-3.4) K/uL [place] # (Auto) 0.74 H (0.11-0.59) K/uL Eos # (Auto) 0.06 (0-0.5) K/uL Baso # (Auto) 0.01 (0-0.2) K/uL Immature Gran # (Auto) 0.02 (0.00-0.02) K/uL Sodium 139 (136-145) mmol/L Potassium 4.1 (3.5-5.1) mmol/L Chloride 109 H (98-107) mmol/L Carbon Dioxide 26 (21-32) mmol/L Anion Gap 5.0 (3-11) BUN 4 L (7-18) mg/dl Creatinine 0.89 (0.6-1.2) mg/dl Est Cr Clr Drug Dosing 42.7 ml/min Est GFR ( Amer) 72.5 Est GFR (Non-Af Amer) 62.5 BUN/Creatinine Ratio 4.6 L (10-20) Glucose 113 H (70-99) mg/dl Calcium 8.7 (8.5-10.1) mg/dl Phosphorus 2.4 L (2.5-4.9) mg/dl Magnesium 1.8 (1.8-2.4) mg/dl PG Care Time/CCT Total # of Minutes Spent Total Time Spent with Patient: Total time spent is greater than 50% in coordination of care (as documented) at patient's floor/unit and/or counseling patient: Coding Level of Care Code 11490 Subseq Hosp Care Lvl 1 Diagnoses Diverticulitis K57.92 Hypertension I10 Gastroesophageal reflux disease K21.9 Breast cancer C50.919 Central retinal vein occlusion H34.8192 DVT prophylaxis Z29.9
[2019-11-01] MEDS: HYDROmorphone INJ 0.5 MG/0.5 ML SYR IV PRN (00:30)
[2019-11-01 05:22] LABS: Basophils # (auto) 0.02 K/uL (0-0.2); Basophils % (auto) 0.3 %; Eosinophils # (auto) 0.16 K/uL (0-0.5); Hematocrit (blood only) 38.8 % (37-47); Hemoglobin 12.9 g/dL (12.0-16.0); Immature Granulocytes # (auto) 0.01 K/uL (0.00-0.02); Immature Granulocytes % (auto) 0.1 %; Lymphocytes # (auto) 1.59 K/uL (1.2-3.4); Lymphocytes % (auto) 20.3 %; Mean Corpuscular Hemoglobin 32.5 pg (25-34); Mean Corpuscular Hgb Conc 33.2 g/dL (32-36); Mean Corpuscular Volume 97.7 fL (80-100); Mean Platelet Volume 9.9 fL (7.4-10.4); Monocytes # (auto) 0.81 K/uL (0.11-0.59); Monocytes % (auto) 10.3 %; Neutrophils # (auto) 5.24 K/uL (1.4-6.5); Platelet Count 239 K/uL (130-400); RDW Coefficient of Variation 13.6 % (11.5-14.5); RDW Standard Deviation 48.8 fL (36.4-46.3); Red Blood Count 3.97 M/uL (4.2-5.4); White Blood Count 7.83 K/uL (4.8-10.8)
[2019-11-01] MEDS ORDERED: ACETAMINOPHEN 325 MG TAB PO PRN (06:16)
[2019-11-01] MEDS ORDERED: HYDROCODONE/ACETAMOPHEN 5/325MG TAB PO PRN ×2 (06:16)
[2019-11-01 06:24] LABS: BUN Creatinine Ratio 4.9 (10-20); Calcium 8.2 mg/dl (8.5-10.1); Est GFR (Non-African American) 57.8; Magnesium 1.8 mg/dl (1.8-2.4); Phosphorus 2.3 mg/dl (2.5-4.9)
--- NOTE | 2019-11-01 06:39 | Surgery Progress Note ---
Date of Service November 01, 2019 Assessment & Plan (1) H/O colectomy: Passing some flatus We will begin clear liquids Decrease IV and DC IV antibiotics Add p.o. pain medication Slowly advance diet over the weekend Possible discharge Monday or Monday if she continues to progress Results & Data Vital Signs (Past 12 Hours) Vital Signs Temp Pulse Resp BP Pulse Ox 10/31/19 23:45 36.9 C 68 18 144/83 H 94 PG Care Time/CCT Total # of Minutes Spent Total Time Spent with Patient: Total time spent is greater than 50% in coordination of care (as documented) at patient's floor/unit and/or counseling patient: Coding Level of Care Code None Diagnoses H/O colectomy Z90.49
[2019-11-01] MEDS: HEPARIN SOD 5,000 UNIT/0.5 ML VIAL SQ SCH ×2 (08:00→20:34)
[2019-11-01] MEDS: ATENOLOL 50 MG TABLET PO SCH (08:00)
[2019-11-01] MEDS: D5NSS + 20MEQ KCL 20 MEQ/1,000 ML BAG IV SCH (09:38)
[2019-11-01] MEDS ORDERED: LORazepam 1 MG/2 ML VIAL IV PRN (12:45)
[2019-11-01] MEDS: LORazepam 1 MG TAB PO PRN ×2 (14:26→23:18)
[2019-11-01] MEDS: ONDANSETRON INJ 2 MG/ML 2 ML VIAL IV PRN ×2 (17:27→23:18)
[2019-11-01] MEDS ORDERED: Nursing to Pharmacy Communication SCH (19:30)
--- NOTE | 2019-11-01 20:02 | Hospitalist Progress Note ---
Date of Service November 01, 2019 Assessment & Plan (1) Diverticulitis: s/p sigmoid colon resection on 10/[address] Yun Passing small amount of flatus, but not much, hypoactive bowel sounds, mild ileus as per Surgery -Continue ice chips and now tea today as per Surgery -awaiting bowel function return, adv diet as tolerated -d/c IV fluids once taking adequate PO, no swelling today on exam -d/c antibiotics as per surgery -encouraged continued ambulation (2) Hypertension: Blood pressure fairly well controlled -Continue home atenolol (3) Gastroesophageal reflux disease: Not on medication Follow (4) Breast cancer: s/p L sided mastectomy with reconstruction in 2013 No current tx (5) Central retinal vein occlusion: Aspirin 81mg from home is on hold Would resume as soon as surgery feels this is safe (6) DVT prophylaxis: As per surgery, Heparin for DVT proph, SCDs Disposition-continued stay Hospitalist service will follow along Admission and Anticipated Discharge Date Admission Date: October 28, 2019 Subjective Patient just started eating today. Tolerating clear liquid diet. No recurrence of abdominal pain, nausea or vomiting. Antibiotics stopped today by surgery. No concerns or questions. Review of Systems Review of Systems: All systems reviewed & are unremarkable except as noted in HPI & below Physical Exam Constitutional: WD/WN, vitals as above Neck: normal visual inspection Respiratory: normal respiratory effort, lungs clear to auscultation Cardiovascular: RRR, no murmur, no edema Gastrointestinal (Abdomen): Inspection/Auscultation: abdomen normal to inspection and normal bowel sounds; abdomen not distended Percussi on/Palpation: abdomen soft; abdomen nontender and no guarding Musculoskeletal: Extremities: extremities normal to inspection; no cyanosis and no clubbing Neurologic: moves all extremities and awake; not confused Psychiatric: A+Ox3, euthymic affect Results & Data Results & Data ([facility]) Vital Signs (Past 12 Hours) Vital Signs Temp Pulse Resp BP Pulse Ox 11/01/19 15:05 36.7 C 65 20 161/92 H 94 PG Care Time/CCT Total # of Minutes Spent Total Time Spent with Patient: Total time spent is greater than 50% in coordination of care (as documented) at patient's floor/unit and/or counseling patient: Coding Level of Care Code 43529 Subseq Hosp Care Lvl 1 Diagnoses Diverticulitis K57.92 Hypertension I10 Gastroesophageal reflux disease K21.9 Breast cancer C50.919 Central retinal vein occlusion H34.8192 DVT prophylaxis Z29.9
[2019-11-02] MEDS: D5NSS + 20MEQ KCL 20 MEQ/1,000 ML BAG IV SCH ×2 (03:31→23:24)
[2019-11-02] MEDS: ATENOLOL 50 MG TABLET PO SCH (09:05)
--- NOTE | 2019-11-02 09:30 | Surgery Progress Note ---
Date of Service November 02, 2019 Assessment & Plan (1) H/O colectomy: POD#5 lap assisted sigmoid colectomy. Overall looks well but bowel function is slow to return. Will continue liquids today given recent nausea, minimal bowel activity. Encourage ambulation. If AUGUSTO site continues to leak, may need to place a suture. Will reassess tomorrow. (2) Diverticulitis: Present on Admission?: Yes Subjective Has been walking around a few times a day. Feels gurgling in the upper abdomen but minimal flatus yet. No bowel movement. Some nausea with the clears last night, improved with zofran. Review of Systems Review of Systems: All systems reviewed & are unremarkable except as noted in HPI & below Physical Exam Constitutional: WD/WN, vitals as above Respiratory: normal respiratory effort; no respiratory distress Auscultation: lungs clear to auscultation bilaterally Cardiovascular: RRR, no murmur, no edema Gastrointestinal (Abdomen): Inspection/Auscultation: abdomen normal to inspection, + abdomen distended (mild) and normal bowel sounds Percussion/Palpation: abdomen nontender and no guarding incision clean, tamra in place, AUGUSTO site is leaking a small amount of clear liquid Neurologic: moves all extremities; no focal motor deficits Psychiatric: Orientation: alert and oriented x 3 Results & Data Vital Signs (Past 12 Hours) Vital Signs Temp Pulse Resp BP Pulse Ox 11/02/19 07:00 36.9 C 64 16 137/81 96 11/02/19 00:25 36.6 C 65 17 160/90 H 95
[2019-11-02] MEDS: HEPARIN SOD 5,000 UNIT/0.5 ML VIAL SQ SCH ×2 (10:08→20:44)
[2019-11-02] MEDS: ONDANSETRON INJ 2 MG/ML 2 ML VIAL IV PRN ×2 (13:17→20:51)
--- NOTE | 2019-11-02 16:16 | Hospitalist Progress Note ---
Date of Service November 02, 2019 Assessment & Plan (1) Diverticulitis: s/p sigmoid colon resection on 10/[address] Ynu Passing flatus, with a small amount of liquid brown stool on 11/01, mild ileus as per Surgery -Continue clear liquids today - adv diet as tolerated -d/c IV fluids once taking adequate PO -Have since discontinued antibiotics as per surgery -encouraged continued ambulation (2) Hypertension: Blood pressure fairly well controlled -Continue home atenolol (3) Gastroesophageal reflux disease: Not on medication Follow (4) Breast cancer: s/p L sided mastectomy with reconstruction in 2013 No current tx (5) Central retinal vein occlusion: Aspirin 81mg from home is on hold Would resume as soon as surgery feels this is safe (6) DVT prophylaxis: As per surgery, Heparin for DVT proph, SCDs Disposition-continued stay Hospitalist service will sign off at this time. Please feel free to reconsult if any acute issues arise. Admission and Anticipated Discharge Date Admission Date: October 28, 2019 Subjective Patient continues to pass flatus and had a very small amount of brown stool that was liquid passed today. She has some mild nausea but is tolerating clear liquids. Has minimal abdominal pain. Previous AUGUSTO site continues to leak and has been reinforced with new dressings. Denies chest pain or shortness of breath, no lightheadedness with ambulation. Review of Systems Review of Systems: All systems reviewed & are unremarkable except as noted in HPI & below Physical Exam Constitutional: WD/WN, vitals as above Eyes: + anicteric sclerae Neck: trachea midline, no thyromegaly Respiratory: normal respiratory effort, lungs clear to auscultation Cardiovascular: RRR, no murmur, no edema Gastrointestinal (Abdomen): Inspection/Auscultation: + hypoactive bowel sounds; + abdomen abnormal to inspection (Dressing over the midline is clean dry and intact except for scant dried blood at the inferior margin, several laparoscopic incisions visible with Dermabond) Percussion/Palpation: + abdomen tender (Minimal over incision site without guarding or rebound tenderness) and abdomen soft Musculoskeletal: Extremities: extremities normal to inspection; no cyanosis and no clubbing Skin: no rashes, warm and dry Neurologic: moves all extremities and awake; no focal motor deficits Psychiatric: A+Ox3, euthymic affect Lymphatic: no lymphedema Results & Data Results & Data ([facility]) Vital Signs (Past 12 Hours) Vital Signs Temp Pulse Resp BP Pulse Ox 11/02/19 15:32 37 C 65 15 147/83 H 96 11/02/19 07:00 36.9 C 64 16 137/81 96 PG Care Time/CCT Total # of Minutes Spent Total Time Spent with Patient: Total time spent is greater than 50% in coordination of care (as documented) at patient's floor/unit and/or counseling patient: Coding Level of Care Code 14447 Subseq Hosp Care Lvl 1 Diagnoses Diverticulitis K57.92 Hypertension I10 Gastroesophageal reflux disease K21.9 Breast cancer C50.919 Central retinal vein occlusion H34.8192 DVT prophylaxis Z29.9
[2019-11-02] MEDS: LORazepam 1 MG TAB PO PRN (20:49)
[2019-11-03 06:02] LABS: Hematocrit (blood only) 38.3 % (37-47); Hemoglobin 12.6 g/dL (12.0-16.0); Mean Corpuscular Hemoglobin 32.6 pg (25-34); Mean Corpuscular Hgb Conc 32.9 g/dL (32-36); Mean Platelet Volume 10.1 fL (7.4-10.4); Platelet Count 247 K/uL (130-400); RDW Coefficient of Variation 13.8 % (11.5-14.5); RDW Standard Deviation 49.2 fL (36.4-46.3); Red Blood Count 3.87 M/uL (4.2-5.4); White Blood Count 6.17 K/uL (4.8-10.8)
[2019-11-03] MEDS: ATENOLOL 50 MG TABLET PO SCH (08:50)
[2019-11-03] MEDS: HEPARIN SOD 5,000 UNIT/0.5 ML VIAL SQ SCH ×2 (08:51→21:27)
--- NOTE | 2019-11-03 14:48 | Surgery Progress Note ---
Date of Service November 03, 2019 Assessment & Plan (1) H/O colectomy: POD#6 lap assisted sigmoid colectomy. Bowel function is slowly returning. On full liquids. Does not feel ready to advance to thicker foods yet. Will try to advance diet tomorrow. (2) Diverticulitis: Subjective On full liquid diet after having a bowel movement yesterday. Continuing to pass flatus but no bowel movement today. Not hungry for more solid food yet. No nausea/ vomiting. Review of Systems Review of Systems: All systems reviewed & are unremarkable except as noted in HPI & below Physical Exam Constitutional: WD/WN, vitals as above Respiratory: normal respiratory effort; no respiratory distress Auscultation: lungs clear to auscultation bilaterally Cardiovascular: RRR, no murmur, no edema Gastrointestinal (Abdomen): Inspection/Auscultation: abdomen normal to inspection, + abdomen distended (mild) and normal bowel sounds Percussion/Palpation: abdomen nontender and no guarding incision clean, leaking serous fluid from both tamra and AUGUSTO site. Dressing changed. Neurologic: moves all extremities; no focal motor deficits Psychiatric: Orientation: alert and oriented x 3 Results & Data Vital Signs (Past 12 Hours) Vital Signs Temp Pulse Resp BP Pulse Ox 11/03/19 07:50 36.9 C 63 16 122/80 94 Laboratory Results Abnormal lab results 11/03/19 Range/Units 04:58 RBC 3.87 L (4.2-5.4) M/uL RDW Std Deviation 49.2 H (36.4-46.3) fL
--- NOTE | 2019-11-03 14:51 | Communication Note ---
Date of Service: November 03, 2019 RN inform you that the patient was having acid reflux symptoms similar to her longstanding acid reflux symptoms at home. She takes Pepcid at home and is r equesting this. I ordered Pepcid 20 mg p.o. once daily first dose now. Patient was not seen today.
[2019-11-03] MEDS: FAMOTIDINE 20 MG TAB PO SCH (15:17)
[2019-11-03] MEDS: LORazepam 1 MG TAB PO PRN (18:46)
[2019-11-03] MEDS: D5NSS + 20MEQ KCL 20 MEQ/1,000 ML BAG IV SCH (19:18)
--- NOTE | 2019-11-04 06:27 | Surgery Progress Note ---
Date of Service November 04, 2019 Assessment & Plan (1) H/O colectomy: afeb, vitals stable some leakage from drain site- will suture later this am some flatus conrad some full liquids no bm yet- has bs - decreased cont FL, add ppn mostly for proteins d/c tamra Results & Data Vital Signs (Past 12 Hours) Vital Signs Temp Pulse Resp BP Pulse Ox 11/03/19 23:24 37.0 C 67 14 126/78 94 PG Care Time/CCT Total # of Minutes Spent Total Time Spent with Patient: Total time spent is greater than 50% in coordination of care (as documented) at patient's floor/unit and/or counseling patient: Coding Level of Care Code None Diagnoses H/O colectomy Z90.49
[2019-11-04] MEDS ORDERED: TPN/PPN CONSULT PHARMACY PRN (06:28)
[2019-11-04] MEDS ORDERED: TPN/PPN CONSULT PHARMACY STA (07:04)
[2019-11-04] MEDS ORDERED: LIDOCAINE HCL 1% 20 ML VIAL INFIL ONE (07:19)
[2019-11-04 08:06] LABS: Calcium 8.1 mg/dl (8.5-10.1); Creatinine Clr Calc Pharmacy 43.7 ml/min; Est GFR (African American) 74.5; Est GFR (Non-African American) 64.3; Magnesium 1.7 mg/dl (1.8-2.4); Potassium 3.6 mmol/L (3.5-5.1)
[2019-11-04 08:09] LABS: Bilirubin,Total 0.5 mg/dl (0.2-1); Phosphorus 3.2 mg/dl (2.5-4.9)
[2019-11-04] MEDS: FAMOTIDINE 20 MG TAB PO SCH (09:10)
[2019-11-04] MEDS: ATENOLOL 50 MG TABLET PO SCH (09:11)
[2019-11-04] MEDS: SENNOSIDES 8.8 MG/5 ML UDC PO SCH ×2 (09:11→20:55)
[2019-11-04] MEDS: HEPARIN SOD 5,000 UNIT/0.5 ML VIAL SQ SCH ×2 (09:12→20:56)
[2019-11-04] MEDS ORDERED: DEXTROSE 10% 1,000 ML IV PRN (11:48)
--- NOTE | 2019-11-04 11:51 | Pharmacy Report ---
PHA: Parenteral Nutrition Con - Date of Service November 04, 2019 - Scope Pharmacy was consulted on [DATE] to manage parenteral nutrition orders for this patient. - Subjective The patient is currently on day 1 of peripheral parenteral nutrition for increased protein needs. - Objective Height: 5 ft Weight: 59.6 kg Diet: Clear Liquid Intake & Output (24hrs):: Intake & Output 11/02/19 11/03/19 11/04/19 11/05/19 06:59 06:59 06:59 06:59 Intake Total 1669.167 / 2934.350 9167.167 / 0539.505 0755 / 1395 Output Total 1250 / 1250 1051 / 1051 2049 / 2049 Balance 419.167 / 419.167 243.167 / 243.167 -655 / -655 Weight 59.6 kg Laboratory Data (Last 24 Hr):: 11/04/19 07:28 Sodium 141 Potassium 3.6 Chloride 109 H Carbon Dioxide 26 BUN 4 L Creatinine 0.87 Glucose 97 Calcium 8.1 L Phosphorus 3.2 Magnesium 1.7 L Total Bilirubin 0.5 AST 35 ALT 43 Alkaline Phosphatase 67 Triglycerides 116 Nutrition Assessment:: Please refer to the Notes section of the EMR for the most recent gasoline engine assembler note. - Assessment Ms Rocio Go is a 79 y/o F who has had decreased intake for about [address] Yun, want to emphasis protein intake via PPN for a couple of days. - Plan For day 1 of PN administration, the following will be ordered: Macronutrients Amino acids 75 grams/day Dextrose 75 grams/day Lipids 35 grams/day Micronutrients Combined electrolytes 40 mL - contains 35 mEq Na, 20 meq K, 4.5 mEq Ca, 5 mEq Mg, 35 mEq Cl, 29.5 mEq acetate per 20 mL Sodium phosphate -- MMol Sodium chloride 30 mEq Sodium acetate -- mEq Potassium phosphate 21 mMol Potassium chloride -- mEq Potassium acetate -- mEq Magnesium sulfate -- mEq Calcium gluconate -- mEq Multivitamins 10 mL Trace Elements 1 mL Additional additives: Total volume 1600 mL to be infused over 24 hrs will provide 905 kcal/day Final osmolarity 895 mOsm/L (maximum for PPN is 900 mOsm/L) Labs, as indicated, will be ordered per protocol Pharmacy will continue to follow and adjust parenteral nutrition orders on a daily basis. Thank you for allowing us to participate in the care of this patient.
[2019-11-04] MEDS: LORazepam 1 MG TAB PO PRN (14:13)
[2019-11-04] MEDS ORDERED: Custom Peripheral Pn 1,600 ML in TPN BAG 0 ML IV SCH (16:00)
[2019-11-04] MEDS: D5NSS + 20MEQ KCL 20 MEQ/1,000 ML BAG IV SCH (16:07)
[2019-11-05 06:26] LABS: BUN Creatinine Ratio 14.7 (10-20); Calcium 8.6 mg/dl (8.5-10.1); Creatinine Clr Calc Pharmacy 51.4 ml/min; Est GFR (African American) 89.1; Est GFR (Non-African American) 76.9
[2019-11-05] MEDS: SENNOSIDES 8.8 MG/5 ML UDC PO SCH (07:29)
[2019-11-05] MEDS: FAMOTIDINE 20 MG TAB PO SCH (07:30)
[2019-11-05] MEDS: ATENOLOL 50 MG TABLET PO SCH (07:30)
--- NOTE | 2019-11-05 10:16 | Discharge Summary (DS) ---
PRINCIPAL DIAGNOSES: Severe acute diverticulitis and chronic diverticulitis. PROCEDURES: The patient underwent laparoscopic assisted sigmoid colectomy. HISTORY OF PRESENT ILLNESS: The patient is a 79-year-old female with multiple episodes of diverticulitis brought into the hospital for elective colectomy. On 10/28/2019, she underwent laparoscopic assisted sigmoid colectomy, which she did tolerate well. She had very severe disease with chronic inflammation and scar tissue. She required mobilization of the splenic flexure. She did relatively well, although was somewhat slow to resume her GI function, but is now doing well and is felt stable for discharge home to be followed in the surgical clinic within 1 week.
== END 2019-11-05 09:00 | disposition home or self-care (01) | DRG 331 ==
LOC: ASU 06:26 → 3N 08:02